=== PATIENT | male | born 2000 | race Caucasian/White ===

== ENCOUNTER 2022-03-29 10:22 | Emergency (ER) | payer SELFPAY ==
[2022-03-29 10:57] VITALS: BP 123/73; PULSE 75; RESP 17; TEMP 97.8; BMI 22.2
[2022-03-29] MEDS ORDERED: ONDANSETRON *ODT* 4 MG TABLET SL ONE (11:22)
[2022-03-29] MEDS ORDERED: PANTOPRAZOLE 40 MG TABLET PO ONE (11:22)
[2022-03-29] MEDS ORDERED: MAG HYDROX/AL HYDROX/SIMETH 30 ML UNIT-DOSE CUP PO ONE (11:22)
[2022-03-29] MEDS ORDERED: FAMOTIDINE 20 MG TABLET PO ONE (11:22)
[2022-03-29] MEDS ORDERED: IBUPROFEN 600 MG TABLET (FP) PO ONE (11:54)
[2022-03-29] MEDS ORDERED: METHOCARBAMOL 500 MG TABLET ONE (11:54)
== END 2022-03-29 13:18 | disposition left against medical advice (07) ==
LOC: JER 10:22
DX: K21.9 Gastro-esophageal reflux disease without esophagitis (principal)
CPT/HCPCS: 99283-25; Q0162

== ENCOUNTER 2022-05-15 08:29 | Emergency (ER) | payer SELFPAY ==
[2022-05-15 08:35] VITALS: BP 126/74; PULSE 87; RESP 18; TEMP 97.7; BMI 22.6
[2022-05-15] MEDS ORDERED: SODIUM CHLORIDE 1,000 ML IV STA (08:46)
[2022-05-15] MEDS ORDERED: FAMOTIDINE 20 MG/50 ML IVPB 20 MG/50 ML MG IVPB ONE (08:46)
[2022-05-15] MEDS ORDERED: ONDANSETRON 4 MG/2 ML VIAL IVPUSH ONE (08:46)
[2022-05-15] MEDS ORDERED: ACETAMINOPHEN 1000 MG/100 ML BAG IVPB ONE (08:52)
[2022-05-15] MEDS ORDERED: FAMOTIDINE 10 MG/ML VIAL IVPB ONE (09:08)
[2022-05-15] MEDS ORDERED: ONDANSETRON 4 MG/2 ML VIAL ONE (09:08)
[2022-05-15 09:54] LABS: BASO % 0.3 % (0-2.0); EOS % 3.5 % (0-4.5); HEMATOCRIT 47.6 % (35.4-49); HEMOGLOBIN 15.4 GM/dL (11.7-16.9); LYMPH % 22.8 % (8-40); MCH 29.1 pg (25.7-33.7); MCHC 32.4 g/dl (32.0-35.9); MEAN CELL VOLUME 89.8 fl (80-96); MEAN PLT VOLUME 7.8 fl (7.5-11.1); NEUT % 66.4 % (42.8-82.8); PLATELET COUNT 263 10^3/uL (134-434); WHITE BLOOD COUNT 9.4 K/mm3 (4.0-10.0)
[2022-05-15] MEDS ORDERED: ACETAMINOPHEN INJECTION 100 ML IVPB ONE (10:10)
[2022-05-15 10:15] LABS: ALBUMIN 4.1 g/dl (3.4-5.0); BLOOD UREA NITROGEN 12.6 mg/dL (7-18); CALCIUM 9.4 mg/dL (8.5-10.1)
[2022-05-15 10:17] LABS: CREATININE 0.9 mg/dL (0.55-1.3)
[2022-05-15 10:19] LABS: BILIRUBIN,TOTAL 0.7 mg/dL (0.2-1); TOT PROT 7.1 g/dl (6.4-8.2)
[2022-05-15 10:57] LABS: URINE APPEARANCE CLOUDY; URINE BILIRUBIN NEGATIVE (NEGATIVE); URINE COLOR YELLOW; URINE GLUCOSE (UA) NEGATIVE (NEGATIVE); URINE KETONE NEGATIVE (NEGATIVE); URINE LEUK ESTERASE NEGATIVE (NEGATIVE); URINE NITRITE NEGATIVE (NEGATIVE); URINE PROTEIN NEGATIVE (NEGATIVE); URINE UROBILINOGEN 0.2 mg/dL (0.2-1.0)
== END 2022-05-15 12:05 | disposition home or self-care (01) ==
LOC: JER 08:29
PROC: 3E0333Z Introduction of Anti-inflammatory into Peripheral Vein, Percutaneous Approach (ICD-10-PCS; principal; 2022-05-15)
PROC: 3E033GC Introduction of Other Therapeutic Substance into Peripheral Vein, Percutaneous Approach (ICD-10-PCS; 2022-05-15)
PROC: 3E033GC Introduction of Other Therapeutic Substance into Peripheral Vein, Percutaneous Approach (ICD-10-PCS; 2022-05-15)
PROC: 3E0337Z Introduction of Electrolytic and Water Balance Substance into Peripheral Vein, Percutaneous Approach (ICD-10-PCS; 2022-05-15)
DX: K29.00 Acute gastritis without bleeding (principal); R10.84 Generalized abdominal pain
CPT/HCPCS: 36415; 71046-TC-FY; 76705-TC; 80053; 81003; 82150; 83690; 85025; 87086; 99285-25

== ENCOUNTER 2022-06-24 09:37 | Emergency (ER) | payer SELFPAY ==
[2022-06-24 10:24] VITALS: BP 122/65; PULSE 75; RESP 20; TEMP 98.6; BMI 22.6
[2022-06-24] MEDS ORDERED: MAG HYDROX/AL HYDROX/SIMETH -MYLANTA- ORAL SUSPENSION PO ONE (10:33)
[2022-06-24] MEDS ORDERED: FAMOTIDINE 10 MG TABLET PO ONE (10:33)
[2022-06-24] MEDS ORDERED: ONDANSETRON *ODT* 4 MG TABLET SL ONE (11:00)
[2022-06-24] MEDS ORDERED: ACETAMINOPHEN 325 MG TABLET (FP) ONE (11:01)
[2022-06-24] MEDS ORDERED: ONDANSETRON *ODT* 4 MG TABLET ONE (11:01)
[2022-06-24] MEDS ORDERED: ACETAMINOPHEN 325 MG TABLET (FP) PO ONE (11:01)
[2022-06-24] MEDS ORDERED: MAG HYDROX/AL HYDROX/SIMETH 30 ML UNIT-DOSE CUP ONE (11:01)
[2022-06-24] MEDS ORDERED: FAMOTIDINE 20 MG TABLET ONE (11:01)
== END 2022-06-24 13:26 | disposition home or self-care (01) ==
LOC: JER 09:37
DX: U07.1 COVID-19 (principal)
CPT/HCPCS: 0241U-QW; 76705-TC; 87070; 87651; 99284-25; Q0162

== ENCOUNTER 2024-10-12 11:24 | Emergency (ER) | payer SELFPAY ==
[2024-10-12 11:51] VITALS: BP 126/62; PULSE 77; RESP 16; TEMP 98.1; BMI 22.6
[2024-10-12 12:41] LABS: ABSOLUTE IMMATURE GRANULOCYTES 0.02 x10^3/uL (0.0-0.031); BASOPHILS # 0.02 x10^3/uL (0.01-0.08); EOSINOPHIL % 0.9 % (0.8-7.0); EOSINOPHILS # 0.08 x10^3/uL (0.04-0.54); HEMATOCRIT 43.7 % (40.1-51.0); HEMOGLOBIN 14.7 g/dL (13.7-17.5); MCHC 33.6 g/dl (32.3-36.5); MEAN CELL VOLUME 88.8 fl (79.0-92.2); MEAN PLT VOLUME 9.2 fl (9.4-12.4); MONOCYTE # 0.63 x10^3/uL (0.30-0.82); MONOCYTE % 7.2 % (5.3-12.2); PLATELET COUNT 237 x10^3/uL (163-337); RDW 13.2 % (11.9-15.3)
[2024-10-12] MEDS ORDERED: KETOROLAC TROMETHAMINE 30 MG/1 ML VIAL ONE (12:41)
[2024-10-12] MEDS ORDERED: ONDANSETRON 4 MG/2 ML VIAL ONE (12:41)
[2024-10-12] MEDS: ONDANSETRON 4 MG/2 ML VIAL IVPUSH ONE (12:48)
[2024-10-12] MEDS: KETOROLAC TROMETHAMINE 30 MG/1 ML VIAL IVPUSH ONE (12:51)
[2024-10-12] MEDS: SODIUM CHLORIDE 0.9% 500 ML INFUS.BAG IV ONE (12:51)
[2024-10-12 13:06] LABS: POTASSIUM 4.1 mmol/L (3.5-5.1)
[2024-10-12 13:11] LABS: ALBUMIN 4.3 g/dl (3.4-5.0); BLOOD UREA NITROGEN 11.8 mg/dL (7-18); CALCIUM 9.8 mg/dL (8.5-10.1)
[2024-10-12 13:14] LABS: CREATININE 0.8 mg/dL (0.55-1.3)
[2024-10-12 13:15] LABS: BILIRUBIN,TOTAL 0.6 mg/dL (0.2-1)
[2024-10-12 14:16] LABS: HIV INTERPRETATION NEGATIVE (NEGATIVE)
[2024-10-12] MEDS ORDERED: FAMOTIDINE 20 MG TABLET ONE (14:59)
[2024-10-12] MEDS ORDERED: MAG HYDROX/AL HYDROX/SIMETH 30 ML UNIT-DOSE CUP ONE (14:59)
[2024-10-12] MEDS: FAMOTIDINE 20 MG TABLET PO ONE (15:00)
[2024-10-12] MEDS: MAG HYDROX/AL HYDROX/SIMETH 30 ML UNIT-DOSE CUP PO ONE (15:00)
[2024-10-12 16:02] LABS: HCV DIAGNOSTIC IN-HOUSE W/RFLX NON-REACTIVE (NONREACTIVE)
== END 2024-10-12 15:12 | disposition home or self-care (01) ==
LOC: JER 11:24
PROC: 3E0333Z Introduction of Anti-inflammatory into Peripheral Vein, Percutaneous Approach (ICD-10-PCS; principal; 2024-10-12)
PROC: 3E033GC Introduction of Other Therapeutic Substance into Peripheral Vein, Percutaneous Approach (ICD-10-PCS; 2024-10-12)
DX: K21.9 Gastro-esophageal reflux disease without esophagitis (principal); R11.2 Nausea with vomiting, unspecified; R10.11 Right upper quadrant pain
CPT/HCPCS: 0241U-QW; 36415; 76705-TC; 80053; 83690; 84478; 85025; 86803; 87389; 99285-25